=== PATIENT | male | born 1940 | race Caucasian/White ===

== ENCOUNTER → 2017-01-16 | Outpatient (CLI) | payer MEDICARE | END | disposition home or self-care (01) | LOC: CDC 12:16 | DX: I49.9 Cardiac arrhythmia, unspecified (principal); I25.2 Old myocardial infarction; R94.31 Abnormal electrocardiogram [ECG] [EKG] | CPT/HCPCS: 93000 ==

== ENCOUNTER 2017-01-25 05:39 | Day surgery (SDC) | payer OTHER ==
[~2017-01-25] VITALS: Ht 177.8 cm; Wt 78.0 kg
[2017-01-25 05:47] VITALS: BP 160/106
[2017-01-25] MEDS ORDERED: PERCOCET 5/31 TABLET PO (08:32)
[2017-01-25 09:15] VITALS: BP 123/60
[2017-01-25 10:10] VITALS: BP 126/63
== END 2017-01-25 10:18 | disposition home or self-care (01) ==
LOC: SDC
PROC: 0YU50JZ Supplement Right Inguinal Region with Synthetic Substitute, Open Approach (ICD-10-PCS; principal; 2017-01-25)
DX: K40.90 Unilateral inguinal hernia, without obstruction or gangrene, not specified as recurrent (principal); N40.0 Benign prostatic hyperplasia without lower urinary tract symptoms; I49.1 Atrial premature depolarization; E78.00 Pure hypercholesterolemia, unspecified; D69.6 Thrombocytopenia, unspecified; Z80.0 Family history of malignant neoplasm of digestive organs; Z83.49 Family history of other endocrine, nutritional and metabolic diseases; Z82.3 Family history of stroke; Z87.891 Personal history of nicotine dependence
CPT/HCPCS: C1781; J0131; J0690; J1100; J2405; J3010

== ENCOUNTER → 2018-01-16 | Outpatient (CLI) | payer OTHER ==
[~2018-01-16] MED LIST: PERCOCET 5/31 TABLET PO
== END | disposition home or self-care (01) ==
LOC: EKG 13:52
DX: I51.7 Cardiomegaly (principal); I05.1 Rheumatic mitral insufficiency; I27.20 Pulmonary hypertension, unspecified; I07.1 Rheumatic tricuspid insufficiency; I06.1 Rheumatic aortic insufficiency; R94.31 Abnormal electrocardiogram [ECG] [EKG]
CPT/HCPCS: 93306

== ENCOUNTER 2018-01-25 23:08 | Emergency (ER) | payer OTHER ==
[~2018-01-25] VITALS: Ht 175.3 cm; Wt 73.8 kg
[2018-01-26 02:05] LABS: APPEARANCE CLEAR ((CLEAR)); BILIRUBIN NEGATIVE; BLOOD NEGATIVE; COLOR YELLOW ((YELLOW)); GLUCOSE (STRIP) NEGATIVE; KETONES 5; LEUKOCYTES NEGATIVE; NITRITE NEGATIVE; PROTEIN (STRIP) 30; SPECIFIC GRAVITY 1.027 (1.000-1.030); UROBILINOGEN 0.2 MG/DL (0.2-1.0)
[2018-01-26] MEDS ORDERED: MIRALAX255 GM PO (02:38)
[2018-01-26 03:02] VITALS: BP 127/75
== END 2018-01-26 03:04 | disposition home or self-care (01) ==
LOC: EME 23:08
PROVIDERS: Physician Assistant
DX: K59.00 Constipation, unspecified (principal); E86.0 Dehydration; Z87.891 Personal history of nicotine dependence
CPT/HCPCS: 74018; 81003; 99281; 99283